=== PATIENT | male | born 1950 | race Caucasian/White ===

== ENCOUNTER 2020-06-18 07:35 | Emergency (ER) | payer MEDICARE, BC, OTHER ==
[2020-06-18] MEDS ORDERED: Aspirin 81 MG Tab.Chew PO ONE (08:20)
--- NOTE | 2020-06-18 08:36 | EDM.PDOC ---
ED HPI GENERAL MEDICAL PROBLEM - General Chief Complaint: Chest Pain Stated Complaint: CHEST PAIN Time Seen by Provider: 06/18/20 08:15 History Limitations: Reports: No Limitations - History of Present Illness INITIAL COMMENTS - FREE TEXT/NARRATIVE: Patient states he has had intermittent chest and bilateral shoulder pain since Thursday. He was unable to sleep last night due to the burning pain. He lives in [place] and flew to [place] then drove to [place] to [place]. Denies any leg pain or SOB. Pain is not reproducable, and patient is pain free. He overexerted himself on Thursday. Onset Date: 06/13/20 Duration: Intermittent, Waxing/Waning Location: Reports: Chest, Back Quality: Reports: Burning, Throbbing Severity: Mild Improves with: Reports: None Worsens with: Reports: None Associated Symptoms: Denies: Nausea/Vomiting, Shortness of Breath Chest Pain Score (Numeric/FACES): 5 - Related Data Allergies Allergy/AdvReac Type Severity Reaction Status Date / Time No Known Allergies Allergy Verified 06/18/20 08:03 Home Meds: Home Meds FLUoxetine [PROzac] 20 mg PO DAILY 06/18/20 [History] ED ROS GENERAL - Review of Systems Review Of Systems: See Below Constitutional: Reports: No Symptoms HEENT: Reports: No Symptoms Respiratory: Reports: No Symptoms Cardiovascular: Reports: Chest Pain Endocrine: Reports: No Symptoms GI/Abdominal: Reports: No Symptoms : Reports: No Symptoms Musculoskeletal: Reports: No Symptoms Skin: Reports: No Symptoms Neurological: Reports: No Symptoms Psychiatric: Reports: No Symptoms Hematologic/Lymphatic: Reports: No Symptoms Immunologic: Reports: No Symptoms ED EXAM, GENERAL - Physical Exam Exam: See Below Exam Limited By: No Limitations General Appearance: Alert, WD/WN, No Apparent Distress Ears: Normal External Exam Nose: Normal Inspection Head: Atraumatic Neck: Normal Inspection, Non-Tender. No: Carotid Bruit Respiratory/Chest: No Respiratory Distress, Lungs Clear, Normal Breath Sounds Cardiovascular: Normal Peripheral Pulses, Regular Rate, Rhythm, No Edema. No: No JVD, No Murmur Peripheral Pulses: 3+: Carotid (L), Carotid (R), Radial (L), Radial (R), Dorsalis Pedis (L), Dorsalis Pedis (R) GI/Abdominal: Normal Bowel Sounds, Soft, Non-Tender Back Exam: Normal Inspection. No: CVA Tenderness (R), CVA Tenderness (L) Extremities: Normal Inspection, No Pedal Edema, Normal Capillary Refill Neurological: Alert, Oriented, Normal Reflexes, No Motor/Sensory Deficits Psychiatric: Normal Affect, Normal Mood Skin Exam: Warm, Dry, Intact Lymphatic: No Adenopathy Course - Vital Signs Last Recorded V/S: Last Vital Signs Temp 97.9 F 06/18/20 07:46 Pulse 56 L 06/18/20 08:01 Resp 16 06/18/20 08:01 BP 164/62 H 06/18/20 08:01 Pulse Ox 96 06/18/20 08:01 - Orders/Labs/Meds Orders: Active Orders 24 hr Category Date Time Status EKG Documentation Completion [RC] ASDIRECTED Care 06/18/20 07:45 Active EKG Documentation Completion [RC] ASDIRECTED Care 06/18/20 08:20 Active Heparin Sodium/D5W [Heparin 25,000 Units in D5W 500 ML] Med 06/18/20 09:45 Active 25,000 units in 500 ml IV TITRATE Sodium Chloride 0.9% [Normal Saline] 500 ml Med 06/18/20 09:13 Ordered IV .BOLUS Medication Orders Sodium Chloride (Normal Saline) 500 mls @ 500 mls/hr IV .BOLUS ONE Stop: 06/18/20 10:12 Last Admin: 06/18/20 09:13 Dose: 500 mls/hr Documented by: ADAMS Heparin Sodium/Dextrose (Heparin 25,000 Units In D5w 500 Ml) 25,000 units in 500 mls @ 22.045 mls/hr IV TITRATE ASHLEY; Protocol Last Admin: 06/18/20 09:45 Dose: 9 units/kg/hr, 22.045 mls/hr Documented by: ADAMS Cosigned by: JOLYNN Labs: Laboratory Tests 06/18/20 06/18/20 06/18/20 Range/Units 08:10 08:10 08:10 WBC 8.0 (4.0-11.0) K/uL RBC 5.10 (4.50-6.50) M/uL Hgb 16.4 (13.0-18.0) g/dL Hct 48.4 (40.0-54.0) % MCV 95 (76-96) fL MCH 32.2 H (27.0-32.0) pg MCHC 33.9 (31.0-35.0) g/dL RDW 12.6 (11.0-16.0) % Plt Count 144 L (150-400) K/uL MPV 11.1 H (6.0-10.0) fL Neut % (Auto) 67.7 (45.0-70.0) % Lymph % (Auto) 20.4 (20.0-40.0) % [place] % (Auto) 7.9 (3.0-10.0) % Eos % (Auto) 3.5 (1.0-5.0) % Baso % (Auto) 0.5 (0.0-0.5) % Neut # (Auto) 5.39 (2.00-7.50) K/uL Lymph # (Auto) 1.62 (1.50-4.00) K/uL [place] # (Auto) 0.63 (0.20-0.80) K/uL Eos # (Auto) 0.28 (0.04-0.40) K/uL Baso # (Auto) 0.04 (0.02-0.10) K/uL PT (9.0-11.5) sec INR (1.0-3.5) APTT (24.4-33.2) SECONDS D-Dimer, Quantitative 528 H (0-400) ng/mL Sodium 141 (136-145) mmol/L Potassium 4.4 (3.5-5.1) mmol/L Chloride 104 (98-107) mmol/L Carbon Dioxide 24.1 (21.0-32.0) mmol/L Anion Gap 17.3 H (5.0-15.0) mmol/L BUN 18 (8-26) mg/dL Creatinine 0.84 (0.70-1.30) mg/dL Est Cr Clr Drug Dosing 99.20 mL/min Estimated GFR (MDRD) > 60 (>60) MLS/MIN BUN/Creatinine Ratio 21.4 (6-25) Glucose 165 H (74-100) mg/dL Calcium 8.7 (8.5-10.1) mg/dL Total Bilirubin 0.4 (0.0-1.0) mg/dL AST 72 H (15-37) U/L ALT 33 (12-78) U/L Alkaline Phosphatase 79 (46-116) U/L Troponin I 7.052 H* (0.000-0.060) ng/mL Total Protein 6.8 (6.4-8.2) g/dL Albumin 3.7 (3.4-5.0) g/dL Globulin 3.1 (2.2-4.2) g/dL Albumin/Globulin Ratio 1.2 (0.8-2.0) COVID-19 ([facility]) 06/18/20 06/18/20 Range/Units 08:10 08:56 WBC (4.0-11.0) K/uL RBC (4.50-6.50) M/uL Hgb (13.0-18.0) g/dL Hct (40.0-54.0) % MCV (76-96) fL MCH (27.0-32.0) pg MCHC (31.0-35.0) g/dL RDW (11.0-16.0) % Plt Count (150-400) K/uL MPV (6.0-10.0) fL Neut % (Auto) (45.0-70.0) % Lymph % (Auto) (20.0-40.0) % [place] % (Auto) (3.0-10.0) % Eos % (Auto) (1.0-5.0) % Baso % (Auto) (0.0-0.5) % Neut # (Auto) (2.00-7.50) K/uL Lymph # (Auto) (1.50-4.00) K/uL [place] # (Auto) (0.20-0.80) K/uL Eos # (Auto) (0.04-0.40) K/uL Baso # (Auto) (0.02-0.10) K/uL PT 10.3 (9.0-11.5) sec INR 1.0 (1.0-3.5) APTT 24.3 L (24.4-33.2) SECONDS D-Dimer, Quantitative (0-400) ng/mL Sodium (136-145) mmol/L Potassium (3.5-5.1) mmol/L Chloride (98-107) mmol/L Carbon Dioxide (21.0-32.0) mmol/L Anion Gap (5.0-15.0) mmol/L BUN (8-26) mg/dL Creatinine (0.70-1.30) mg/dL Est Cr Clr Drug Dosing mL/min Estimated GFR (MDRD) (>60) MLS/MIN BUN/Creatinine Ratio (6-25) Glucose (74-100) mg/dL Calcium (8.5-10.1) mg/dL Total Bilirubin (0.0-1.0) mg/dL AST (15-37) U/L ALT (12-78) U/L Alkaline Phosphatase (46-116) U/L Troponin I (0.000-0.060) ng/mL Total Protein (6.4-8.2) g/dL Albumin (3.4-5.0) g/dL Globulin (2.2-4.2) g/dL Albumin/Globulin Ratio (0.8-2.0) COVID-19 ([facility]) Negative Meds: Medications Generic Name Dose Route Start Last Admin Trade Name Freq PRN Reason Stop Dose Admin Sodium Chloride 500 mls @ 500 mls/hr 06/18/20 09:13 06/18/20 09:13 Normal Saline IV 06/18/20 10:12 500 mls/hr .BOLUS ONE Administration Heparin Sodium/Dextrose 25,000 units in 500 mls @ 22.045 mls/hr 06/18/20 09:45 06/18/20 09:45 Heparin 25,000 Units In D5w 500 Ml IV 9 units/kg/hr TITRATE ASHLEY 22.045 mls/hr Administration Protocol 9 UNITS/KG/HR Discontinued Medications Generic Name Dose Route Start Last Admin Trade Name Freq PRN Reason Stop Dose Admin Aspirin 324 mg 06/18/20 08:20 06/18/20 08:20 Aspirin PO 06/18/20 08:21 324 mg ONETIME ONE Administration Heparin Sodium (Porcine) 4,000 units 06/18/20 09:30 06/18/20 09:37 Heparin Sodium IVPUSH 06/18/20 09:31 4,000 units ONETIME ONE Administration Ondansetron HCl 8 mg 06/18/20 09:50 06/18/20 09:51 Zofran IVPUSH 06/18/20 09:51 8 mg ONETIME ONE Administration Ondansetron HCl Confirm 06/18/20 09:59 Zofran Administered 06/18/20 10:00 Dose 4 mg .ROUTE .STK-MED ONE Departure - Departure Time of Disposition: 10:00 Disposition: DC/Tfer to Acute Hospital 02 Reason for Transfer *Q: Primary PCI Indicated Condition: Good Clinical Impression: Abnormal electrocardiogram [ECG] [EKG], Elevated d-dimer, Elevated troponin Chest pain Qualifiers: Chest pain type: unspecified Qualified Code(s): R07.9 - Chest pain, unspecified Referrals: PCP,None [Primary Care Provider] - Forms: ED Department Discharge, Interfacility Transfer JORDEN Sepsis Event Note (ED) - Focused Exam Vital Signs: Vital Signs Temp Pulse Resp BP Pulse Ox 06/18/20 08:01 56 L 16 164/62 H 96 06/18/20 07:54 57 L 16 166/72 H 95 06/18/20 07:46 97.9 F 58 L 16 166/97 H 96 - My Orders Last 24 Hours: My Active Orders 06/18/20 07:45 EKG Documentation Completion [RC] ASDIRECTED 06/18/20 08:20 EKG Documentation Completion [RC] ASDIRECTED 06/18/20 09:13 Sodium Chloride 0.9% [Normal Saline] 500 ml IV .BOLUS 06/18/20 09:45 Heparin Sodium/D5W [Heparin 25,000 Units in D5W 500 ML] 25,000 units in 500 ml IV TITRATE - Assessment/Plan Last 24 Hours: My Active Orders 06/18/20 07:45 EKG Documentation Completion [RC] ASDIRECTED 06/18/20 08:20 EKG Documentation Completion [RC] ASDIRECTED 06/18/20 09:13 Sodium Chloride 0.9% [Normal Saline] 500 ml IV .BOLUS 06/18/20 09:45 Heparin Sodium/D5W [Heparin 25,000 Units in D5W 500 ML] 25,000 units in 500 ml IV TITRATE Assessment:: Patient is pain free at this time. 324 mg ASA given, HR 56, BP left arm 158/84, right arm 146/98. Denies N/V/D, SOB, leg pain, cardiac history. The only medication is fluoxitine. Recent travel from [place], d-dimer ordered. Plan: Spoke with Dr. Alexis the hospitalist in [place], about admission.
--- NOTE | 2020-06-18 08:58 | CR ---
DATE OF SERVICE: 06/18/20 CLINICAL DATA: chest pain AP CHEST: No priors. The patient has taken a poor inspiration. The heart is enlarged. The lungs are clear. No pneumothorax. No pleural effusions. No evidence of acute intrathoracic disease. [id number] [facility]
[2020-06-18] MEDS ORDERED: Sodium Chloride 0.9% 500 ML IV ONE (09:13)
[2020-06-18] MEDS ORDERED: Heparin Sodium 5,000 UNITS/0.5 ML Syringe IVPUSH ONE (09:30)
[2020-06-18] MEDS ORDERED: Heparin Sodium/D5W 25,000 UNITS/500 ML BAG IV SCH (09:45)
[2020-06-18] MEDS ORDERED: Ondansetron 4 MG/2 ML SDV IVPUSH ONE (09:50)
[2020-06-18] MEDS ORDERED: Ondansetron 4 MG/2 ML SDV ONE (09:59)
== END 2020-06-18 10:15 ==
LOC: LB.ED 07:35
DX: R07.9 Chest pain, unspecified (principal); R79.89 Other specified abnormal findings of blood chemistry; R79.1 Abnormal coagulation profile; R94.31 Abnormal electrocardiogram [ECG] [EKG]; Z79.899 Other long term (current) drug therapy; Z20.828 Contact with and (suspected) exposure to other viral communicable diseases
CPT/HCPCS: 36415; 71045; 80053; 84484; 85025; 85379; 85610; 85730; 93005; 96365; 96375; 99285; A9270; J1644; J2405; J7040; U0002